=== PATIENT | male | born 1955 | race African-American/Black ===

== ENCOUNTER 2018-01-08 23:56 | Emergency (ER) | payer OTHER, BC ==
[~2018-01-08] VITALS: Ht 172.7 cm; Wt 96.2 kg
[~2018-01-08 23:56] MED LIST: ALEVE220 MG PO; FLEXERIL10 MG PO; LISINOPRIL10 MG PO; METFORMIN HCL850 MG PO; MOTRIN600 MG PO; MOTRIN800 MG PO; PANTOPRAZOLE SO40 MG PO; PERCOCET 5/31 TABLET PO; PRED FORTE100 DROP/5 LEFT EYE
[2018-01-09] MEDS ORDERED: ROBAXIN750 MG PO (01:35)
[2018-01-09 01:53] VITALS: BP 147/88
== END 2018-01-09 01:54 | disposition home or self-care (01) ==
LOC: EME 23:56
DX: S46.912A Strain of unspecified muscle, fascia and tendon at shoulder and upper arm level, left arm, initial encounter (principal); V49.60XA Unspecified car occupant injured in collision with unspecified motor vehicles in traffic accident, initial encounter; Y92.410 Unspecified street and highway as the place of occurrence of the external cause
CPT/HCPCS: 73030; 99281; 99284